=== PATIENT | male | born 2000 | race Caucasian/White ===

== ENCOUNTER 2020-02-17 16:46 | Emergency (ER) | payer OTHER ==
--- NOTE | 2020-02-17 17:43 | ER Document Report ---
HPI - HPI Patient complains to provider of: STD exposure Time Seen by Provider: 02/17/20 17:30 Pain Level: Denies Context: 19-year-old male with no previous medical problems presents to the emergency room for concerns for an STD. Patient states a month ago his girlfriend called him and told him she was positive for gonorrhea and then called him back later and told him he was positive for chlamydia. [place]. Patient is currently without symptoms he was concerned that since he was treated prior to getting the test results that they might not be adequate treatment. He states he has not had any unprotected sex since he was told by his fiance that she had chlamydia. Denies any dysuria, denies any discharge. Denies any rash. Associated Symptoms: None Exacerbated by: Denies Relieved by: Denies Similar symptoms previously: No Recently seen / treated by doctor: Yes - Treated on days 1 month ago for both gonorrhea and chlamydia. - ROS Systems Reviewed and Negative: Yes All other systems reviewed and negative - NEURO Neurology: DENIES: Weakness - GASTROINTESTINAL Gastrointestinal: DENIES: Abdominal Pain, Nausea - URINARY Urinary: DENIES: Dysuria, Urgency, Frequency - DERM Skin Color: Normal Skin Problems: None Past Medical History - General Information source: Patient - Social History Smoking Status: Current Every Day Smoker Frequency of alcohol use: Social Drug Abuse: None Family History: Reviewed & Not Pertinent Vertical Provider Document - CONSTITUTIONAL Agree With Documented VS: Yes Exam Limitations: No Limitations General Appearance: No Apparent Distress - INFECTION CONTROL TRAVEL OUTSIDE OF THE [place] IN LAST 30 DAYS: No - HEENT HEENT: Atraumatic, Normocephalic - NECK Neck: Normal Inspection, Supple, Thyroid Normal - RESPIRATORY Respiratory: Breath Sounds Normal, No Respiratory Distress, Chest Non-Tender - CARDIOVASCULAR Cardiovascular: Regular Rate, Regular Rhythm, No Murmur - GI/ABDOMEN Gastrointestinal: Abdomen Soft, Abdomen Non-Tender, No Organomegaly. negative: Abdominal Guarding, Abdominal Rebound - REPRODUCTIVE Male Genitalia: Normal Inspection - BACK Back: Normal Inspection. negative: CVA Tenderness-Right, CVA Tenderness-Left - MUSCULOSKELETAL/EXTREMETIES Musculoskeletal/Extremeties: FROM - NEURO Level of Consciousness: Awake, Alert Motor/Sensory: No Motor Deficit, No Sensory Deficit - DERM Integumentary: Warm, Dry, No Rash Course - Re-evaluation Re-evalutation: 02/17/20 18:03 Patient was counseled that we would go ahead and test him for both gonorrhea and chlamydia. Explained to patient that he is already been treated for both even though he was not notified about the chlamydia till after he was treated on days. He was counseled no unprotected sex until he gets the results of his gonorrhea and chlamydia. He is aware they will be notified of his test results are positive. Was also counseled if his test results are positive he can follow-up on [facility], health department or return to the emergency room for treatment. Patient was given strict return to the emergency room guidelines. Return for any new or worsening symptoms. All questions were answered. Patient verbalized understanding and agrees with plan of care. 02/17/20 20:16 Patient was called and notified of his negative lab results. He was counseled to follow-up outpatient for any other concerns or issues. - Vital Signs Vital signs: Temp Pulse Resp BP Pulse Ox 98.6 F 86 20 134/72 H 100 02/17/20 17:14 02/17/20 17:14 02/17/20 17:14 02/17/20 17:14 02/17/20 17:14 Discharge - Discharge Clinical Impression: STD exposure Condition: Stable Disposition: HOME, SELF-CARE Instructions: Urethritis ([facility]) Additional Instructions: You will be notified if your gonorrhea and/or chlamydia test are positive. No unprotected sex until you get your test results. Return to the emergency room for any new or worsening symptoms.
[2020-02-17 18:10] VITALS: BP 121/78
[2020-02-17 20:03] LABS: CHLAM PCR NOT DETECTED (NOT DETECT)
== END 2020-02-17 18:10 | disposition home or self-care (01) ==
LOC: EDBD → ER 16:46
DX: Z20.2 Contact with and (suspected) exposure to infections with a predominantly sexual mode of transmission (principal); F17.200 Nicotine dependence, unspecified, uncomplicated
CPT/HCPCS: 87491; 87591; 99283

== ENCOUNTER 2020-05-03 17:13 | Emergency (ER) | payer OTHER ==
[2020-05-03 17:20] VITALS: BP 117/71
[2020-05-03] MEDS ORDERED: CEFTRIAXONE INJ 250 MG VIAL IM ONE (17:31)
[2020-05-03] MEDS ORDERED: AZITHROMYCIN 250 MG TABLET PO ONE (17:31)
[2020-05-03] MEDS ORDERED: LIDOCAINE 1% INJ-PF (10 MG/ML) 30 ML SDV INJ ONE (17:31)
--- NOTE | 2020-05-03 17:38 | ER Document Report ---
ED GI/ - General Chief Complaint: STD Exposure Stated Complaint: STD EXPOSURE Time Seen by Provider: 05/03/20 17:28 Primary Care Provider: ELIZABETH BATES [Primary Care Provider] - Follow up as needed Mode of Arrival: Ambulatory Information source: Patient Notes: 19-year-old male presented ED for pain inside the penis around the shaft and with urination. He states he did have unprotected sex. He states that he and his friends at work were discussing their dates and they had multiple people been out with this girl and many of them have been tested with either GC or chlamydia recently. He states he did break-up with a girl but when he started having pain and discomfort he decided to come get tested and treated. Patient is alert oriented respirations regular nonlabored speaking in full sentences. Constitutional: Negative for fever. HENT: Negative for sore throat. Eyes: Negative for visual changes. Cardiovascular: Negative for chest pain. Respiratory: Negative for shortness of breath. Gastrointestinal: Negative for abdominal pain, vomiting or diarrhea. Genitourinary: Discomfort to the penis burning and pain with urination no rashes no redness no inflammation on the outside. Musculoskeletal: Negative for back pain. Skin: Negative for rash. Neurological: Negative for headaches, weakness or numbness. 10 point ROS negative except as marked above and in HPI. VITAL SIGNS: Within normal limits. GENERAL: No acute distress, non-toxic appearance. CHEST: Clear breath sounds bilaterally. No wheezes, rales, or rhonchi. ABDOMEN: Normal and soft with no tenderness, no masses or pulsatile masses. GASTROINTESTINAL: Bowel sounds normal GENITOURINARY: As to the penis no redness no inflammation noted no lumps or bumps noted. This exam was completed with Padmini Marcial PCT as poultry pinner. LYMPATHTIC: No lymphadenopathy noted. MUSCULOSKELETAL: Good range of motion of all major joints. Extremities without clubbing, cyanosis or edema. SKIN: Normal appearance with no rashes or lesions. TRAVEL OUTSIDE OF THE [place] IN LAST 30 DAYS: No - HPI Patient complains to provider of: Other - Penile pain burning with urination Onset: Other - Couple days Timing/Duration: Intermittent Quality of pain: Burning Severity at maximum: Moderate Severity in ED: Moderate Pain Level: 3 Location: Other - Pain yes Sexual history: Active, Unprotected intercourse Associated symptoms: Other - Discomfort in the penis and burning with urination Exacerbated by: Denies, Other - Urination Similar symptoms previously: No Recently seen / treated by doctor: No - Related Data Allergies/Adverse Reactions: No Known Allergies Allergy (Verified 02/17/20 17:54) Past Medical History - General Information source: Patient - Social History Smoking Status: Never Smoker - Vapor Frequency of alcohol use: None Drug Abuse: None Family History: Reviewed & Not Pertinent Patient has suicidal ideation: No Patient has homicidal ideation: No - Past Medical History Cardiac Medical History: Reports: None Pulmonary Medical History: Reports: None EENT Medical History: Reports: None Neurological Medical History: Reports: None Endocrine Medical History: Reports: None Renal/ Medical History: Reports: None Malignancy Medical History: Reports None GI Medical History: Reports: None Musculoskeletal Medical History: Reports None Skin Medical History: Reports None Psychiatric Medical History: Reports: None Traumatic Medical History: Reports: None Infectious Medical History: Reports: None Past Surgical History: Reports: Hx Appendectomy - Immunizations Immunizations up to date: Yes Hx Diphtheria, Pertussis, Tetanus Vaccination: Yes Physical Exam - Vital signs Vitals: Temp Pulse Resp BP Pulse Ox 98.5 F 69 18 117/71 100 05/03/20 17:19 05/03/20 17:19 05/03/20 17:19 05/03/20 17:19 05/03/20 17:19 Course - Vital Signs Vital signs: Temp Pulse Resp BP Pulse Ox 98.5 F 69 18 117/71 100 05/03/20 17:19 05/03/20 17:19 05/03/20 17:19 05/03/20 17:19 05/03/20 17:19 - Laboratory Laboratory results interpreted by me: 05/03/20 17:30 Urine Urobilinogen 2.0 H Ur Leukocyte Esterase SMALL H Discharge - Discharge Clinical Impression: STD exposure, Urethritis Condition: Stable Disposition: HOME, SELF-CARE Additional Instructions: Urethritis You have urethritis, an infection of the urethra. The usual symptoms are pain on urination and discharge. The infection is often caused by gonorrhea or chlamydia. Treatment is antibiotics. In addition, any sexual contacts should be evaluated by a physician as soon as possible. As this infection can be transmitted sexually, refrain from sexual activity until the infection is confirmed as healed by your physician. If gonorrhea or chlamydia is found on culture, the health department must be notified. Call the doctor at once if you develop difficulty passing your urine, high fever, rash, joint swelling, or other new symptoms. Your test for gonorrhea and chlamydia will not come back for about 2 to 3 hours. If you will call tomorrow [phone] they will be able to give you the culture results. We do not make you wait in the ER that long. Please refrain from any sexual intercourse until you know if it is negative or positive and if it is positive for either gonorrhea or chlamydia you need to refrain from any sexual intercourse for 10 days after being treated. Any future sexual intercourse should be with safe sex practices. Rocephin You have been given an injection of an antibiotic called Rocephin (ceftriaxone). Sometimes the injection must be combined with antibiotic pills. For some infections, such as an uncomplicated ear infection, Rocephin provides all the antibiotic that's needed. The antibiotic will be in your body for about two days. For serious infections, we usually repeat doses of Rocephin daily. Side effects are very unusual following a shot. Women may develop vaginal yeast infections, and babies can get yeast (thrush) in the mouth following the use of antibiotics. Contact your physician if you have symptoms with this medication. Allergy to this antibiotic can result in hives, wheezing, faintness, or itc penelope. If symptoms of allergy occur, call the doctor at once. Azithromycin Azithromycin (Zithromax) is a broad spectrum antibiotic in the same class as erythromycin. It can treat a variety of bacterial infections, but is most frequently used for respiratory infections. Azithromycin is extremely long-lasting. It accumulates in body tissues and continues to kill bacteria for many days. In order to improve absorption, Azithromycin should be taken at least one hour before or two hours after a meal. It does not have the same strong tendency to upset the stomach as erythromycin and is usually very well tolerated. Patients who have had a rash or other true allergic reactions to erythromycin should not take this medication. Call if you develop gastro intestinal distress, severe diarrhea, rash, hives, itching, or shortness of breath. FOLLOW-UP CARE: If you have been referred to a physician for follow-up care, call the physicians office for an appointment as you were instructed or within the next two days. If you experience worsening or a significant change in your symptoms, notify the physician immediately or return to the Emergency Department at any time for re-evaluation. Forms: Smoking Cessation Education Referrals: [facility],NO [Primary Care Provider] - Follow up as needed
[2020-05-03 17:53] LABS: APPEARANCE,URINE CLEAR; BILIRUBIN,URINE NEGATIVE (NEGATIVE); COLOR,URINE YELLOW; GLUCOSE, URINE NEGATIVE (NEGATIVE); KETONES,URINE NEGATIVE (NEGATIVE); LEUKOCYTE ESTERASE,URINE SMALL (NEGATIVE); NITRITE,URINE NEGATIVE (NEGATIVE); PROTEIN,URINE NEGATIVE (NEGATIVE); URINE SPECIFIC GRAVITY 1.013
[2020-05-03 19:23] LABS: CHLAM PCR DETECTED (NOT DETECT)
== END 2020-05-03 18:18 | disposition home or self-care (01) ==
LOC: ER 17:13
DX: Z20.2 Contact with and (suspected) exposure to infections with a predominantly sexual mode of transmission (principal); N34.2 Other urethritis; N48.89 Other specified disorders of penis; R30.0 Dysuria
CPT/HCPCS: 99284; 96372; 87086; 81001; 87491; 87591; J3490; J0696